=== PATIENT | female | born 1965 | race Caucasian/White ===

== ENCOUNTER 2022-03-07 09:58 | Emergency (ER) | payer OTHER, SELFPAY ==
[2022-03-07 10:07] VITALS: BP 128/71; PULSE 85; RESP 14; TEMP 37.7; O2SAT 99
--- NOTE | 2022-03-07 10:55 | ED.URI ---
HPI - URI/Sore Throat General Chief Complaint: Upper Respiratory Infection Stated Complaint: cough sore throat fatigue Time Seen by Provider: 03/07/22 10:56 Source: patient Mode of arrival: ambulatory Limitations: no limitations History of Present Illness HPI Narrative: 56 year old female who presents to [facility] care with complaints of low grade fever up to 100F on Saturday and then she had sore throat last evening with hoarseness and cough. Patient reports that she has conference to attend tomorrow and is concerned she has something that may be infectious.Patient has taken a home COVID test o Saturday which was negative. She has been takining some Ibuprofen and also some night time PM medication. patient reports that her cough was past last night she coughed all night. Patient reports that she has been COVID vaccinated. MD elicited complaint: cough and sore throat Onset (ago): day(s) (3) Treatments prior to arrival: ibuprofen and other (nighttime PM medication) Related Data Allergies Allergy/AdvReac Type Severity Reaction Status Date / Time Sulfa (Sulfonamide Allergy Rash Verified 03/07/22 10:29 Antibiotics) Review of Systems Review of Systems: CONSTITUTIONAL: Denies malaise, chills, sweats, positive for low grade fever. EYES: Denies visual changes, redness, or discharge. ENT: Reports rhinorrhea, congestion, denies sinus pain,no otalgia positive for sore throat. CARDIOVASCULAR: Denies chest pain, palpitations, or edema. RESPIRATORY: Reports cough.? Denies dyspnea. GASTROINTESTINAL: Denies abdominal pain, nausea, vomiting, diarrhea SKIN: Denies rash or itching. MUSCULOSKELETAL: Denies myalgia. NEUROLOGIC: Denies headache. All systems reviewed & are unremarkable except as noted in HPI and below [facility] History Surgical History (Updated 03/10/22 @ 08:55 by Kimberly Rosales NP) H/O tubal ligation Social History Social History (Updated 03/10/22 @ 08:56 by Kimberly Rosales NP) Smoking status: Never smoker Alcohol intake: current Alcohol use details: rare social Substance use: never Substance use type: does not use Living arrangements: with family Gender identity (if verbalized by the patient): Female Comments At time of signature, agree with nursing past medical, surgical, social and family history. There is no relevant family history pertinent to the presenting complaint Exam Narrative: GENERAL: Well-appearing, well-nourished, and in no acute distress. HEAD: Normocephalic EYES: PERRLA, conjunctivae clear ENT: Nares clear, turbinates edematous and erythematous, clear discharge. Mucous membranes moist. TM pearly moy with dull light reflex bilaterally; no tragal tenderness. Oropharynx erythematous without lesions. Tonsils not enlarged and without exudate, no drooling, positive for hoarseness, no trismus, uvula midline. NECK: Supple. No lymphadenopathy CHEST: Clear to auscultation, breath sounds equal. No wheezing, rhonchi, rales, or stridor. No respiratory distress, speaks in full sentences, dry cough noted.SAO2 99% on room air. HEART: Regular rate and rhythm. No murmur heard. SKIN: Warm, dry, no rash. NEURO: Alert and oriented x3. PSYCH: Normal mood and affect Course Course Emergency Course: Patient is aware of diagnosis, understands and agrees to treatment plan.? Anticipatory guidance given.? Patient agrees to follow-up as directed and is aware of reasons to seek care at the emergency department. Portions of this record may have been created with voice recognition software Level of Care: Express Care Visit Vital Signs Vital signs: Vital Signs Temperature 37.7 C H 03/07/22 10:07 Pulse Rate 85 03/07/22 10:07 Respiratory Rate 14 03/07/22 10:07 Blood Pressure 128/71 03/07/22 10:07 Pulse Oximetry 99 03/07/22 10:07 Oxygen Delivery Room Air 03/07/22 10:07 Temperature 37.7 C H 03/07/22 10:07 Pulse Rate 85 03/07/22 10:07 Respirator
== END 2022-03-07 11:17 | disposition home or self-care (01) ==
PROVIDERS: Emergency Provider Registered Nurse
DX: J06.9 Acute upper respiratory infection, unspecified (principal); J02.9 Acute pharyngitis, unspecified
CPT/HCPCS: 87081; 87804; 87880; 99213; G0463

== ENCOUNTER 2022-03-12 09:51 | Emergency (ER) | payer OTHER, SELFPAY ==
[2022-03-12 10:16] VITALS: BP 146/81; PULSE 91; RESP 16; TEMP 36.7; O2SAT 99
--- NOTE | 2022-03-12 10:39 | ED.EAR ---
HPI - Ear Problem General Chief complaint: Ear Stated complaint: ears / congestion Time Seen by Provider: 03/12/22 10:40 Source: patient and RN notes reviewed Mode of arrival: ambulatory Limitations: no limitations History of Present Illness HPI Narrative: 56 y/o female presented for c/o Sinus congestion and bilateral ear pressure for over one week. Prescribed steroid 03/07 but denies improvement. Tested neg for covid, strep and flu at that time. States 'I feel worse.' Endorses eyes with drainage in the morning. Not taking anything else for symptoms. Denies sob, wheezing, vomiting, fever, chills. Related Data Allergies Allergy/AdvReac Type Severity Reaction Status Date / Time codeine Allergy Rash Verified 03/12/22 10:14 Sulfa (Sulfonamide Allergy Rash Verified 03/12/22 10:14 Antibiotics) Review of Systems Review of Systems: Per HPI [facility] Surgical History Surgical History H/O tubal ligation Social History Social History Smoking status: Never smoker Alcohol intake: current Alcohol use details: rare social Substance use: never Substance use type: does not use Gender identity (if verbalized by the patient): Female Exam Narrative: GENERAL: Ill-appearing, nontoxic EYES: conjunctivae clear ENT: Mucous membranes moist. TMs pearly moy with dull light reflex bilaterally; no tragal tenderness. Oropharynx erythematous without lesions or exudate, no drooling, no hoarseness, no trismus, uvula midline. NECK: Supple. No lymphadenopathy CHEST: Clear to auscultation, breath sounds equal. No respiratory distress, speaks in full sentences. HEART: Regular rate and rhythm. No murmur heard. SKIN: Warm, dry, no rash. NEURO: Alert and oriented x3. Course Course Emergency Course: Patient is aware of diagnosis, understands and agrees to treatment plan. Anticipatory guidance given. Patient agrees to follow-up as directed and is aware of reasons to seek care at the emergency department. Portions of this record may have been created with voice recognition software Level of Care: Express Care Visit Vital Signs Vital signs: Vital Signs Temperature 98.1 F 03/12/22 10:16 Pulse Rate 91 03/12/22 10:16 Respiratory Rate 16 03/12/22 10:16 Blood Pressure 146/81 H 03/12/22 10:16 Pulse Oximetry 99 03/12/22 10:16 Oxygen Delivery Room Air 03/12/22 10:16 Temperature 98.1 F 03/12/22 10:16 Pulse Rate 91 03/12/22 10:16 Respiratory Rate 16 03/12/22 10:16 Blood Pressure 146/81 H 03/12/22 10:16 Pulse Oximetry 99 03/12/22 10:16 Oxygen Delivery Room Air 03/12/22 10:16 reviewed Medical Decision Making MDM Narrative Medical decision making narrative: Advised supportive measures and signs/symptoms to go to the ER. Pt is appropriate for outpt treatment and f/u. Differential Diagnosis Differential Diagnosis: Influenza, covid, sinusitis, OM, strep pharyngitis, URI Vital Signs Vital Signs: Vital Signs Temperature 98.1 F 03/12/22 10:16 Pulse Rate 91 03/12/22 10:16 Respiratory Rate 16 03/12/22 10:16 Blood Pressure 146/81 H 03/12/22 10:16 Pulse Oximetry 99 03/12/22 10:16 Oxygen Delivery Room Air 03/12/22 10:16 Temperature 98.1 F 03/12/22 10:16 Pulse Rate 91 03/12/22 10:16 Respiratory Rate 16 03/12/22 10:16 Blood Pressure 146/81 H 03/12/22 10:16 Pulse Oximetry 99 03/12/22 10:16 Oxygen Delivery Room Air 03/12/22 10:16 Discharge Plan Discharge Clinical Impression: Upper respiratory infection Patient Disposition: Home, Self-Care Condition: Stable Instructions: Upper Respiratory Infection (ED) Additional Instructions: Recommend Flonase spray and Zyrtec (or Claritin/[place]) over the counter Cough syrup may cause drowsiness; avoid driving or take it at night time. Tylenol 1000mg every 8 hours as needed for pain S
== END 2022-03-12 10:53 | disposition home or self-care (01) ==
PROVIDERS: Emergency Provider Nurse Practitioner Family
DX: J06.9 Acute upper respiratory infection, unspecified (principal)
CPT/HCPCS: 99213; G0463